=== PATIENT | female | born 1935 | race Native Hawaiian/Other Pacific Islander ===

== ENCOUNTER 2017-02-05 07:27 | Inpatient (IN) | payer OTHER ==
[~2017-02-05] VITALS: Ht 162.6 cm; Wt 65.8 kg
[2017-02-05] MEDS ORDERED: AMLO2.5T PO (07:35)
[2017-02-05] MEDS ORDERED: LOSA25TA13 PO (07:35)
--- NOTE | 2017-02-05 07:50 | NUR ---
Dr Ambrose at the bedside for eval and exam. Pt's daughter translate.
[2017-02-05 08:26] LABS: CARBON DIOXIDE 30 mmol/L (21-32); CHLORIDE 105 mmol/L (98-107); CREATININE 0.9 mg/dL (0.6-1.3); GLUCOSE 100 mg/dL (74-106); POTASSIUM 4.1 mmol/L (3.5-5.1); UREA NITROGEN, BLOOD 16 mg/dL (7-18)
[2017-02-05 08:39] LABS: BASOPHILS % (AUTO) 0.9 % (0.0-2.0); EOSINOPHILS # (AUTO) 0.1 K/uL (0.0-0.7); EOSINOPHILS % (AUTO) 1.2 % (0.0-7.0); HEMATOCRIT 42.1 % (37-47); HEMOGLOBIN 14.1 G/DL (12.0-16.0); LYMPHOCYTES # (AUTO) 1.3 K/UL (0.8-4.8); LYMPHOCYTES % (AUTO) 25.3 % (20.5-51.5); MEAN CORPUSCULAR HEMOGLOBIN 29.1 UUG (27.0-31.0); MEAN CORPUSCULAR HGB CONC 34 g/dL (32.0-37.0); MEAN CORPUSCULAR VOLUME 86.8 FL (81.0-99.0); MONOCYTES # (AUTO) 0.5 K/UL (0.1-1.30); MONOCYTES % (AUTO) 9.6 % (0.0-11.0); NEUTROPHILS # (AUTO) 3.4 K/UL (1.8-8.9); PLATELET COUNT (AUTO) 255 K/UL (150-450); RED BLOOD CELL COUNT(AUTO) 4.85 MIL/UL (4.2-5.4); WHITE BLOOD COUNT (AUTO) 5.3 K/UL (4.0-11.2)
[2017-02-05 08:41] LABS: ALANINE AMINOTRANSFERASE 21 U/L (14-59); ALKALINE PHOSPHATASE 43 U/L (50-136); ASPARTATE AMINOTRANSFERASE 20 U/L (15-37); BILIRUBIN,TOTAL 0.6 mg/dL (0.2-1.0); TOTAL PROTEIN, SERUM 7.8 g/dL (6.4-8.2)
[2017-02-05 09:16] LABS: *BILIRUBIN,URIN NEGATIVE (NEGATIVE); *BLOOD, URINE 1+ (NEGATIVE); *CLARITY,URINE CLEAR (CLEAR); *COLOR,URINE YELLOW (YELLOW); *KETONES,URINE NEGATIVE (NEGATIVE); *PROTEIN,URINE NEGATIVE (NEGATIVE); *UROBILINOGEN,URINE 0.2 E.U./dl (NORMAL); LEUKOCYTE ESTERASE ,URINE NEGATIVE (NEGATIVE); NITRITE, URINE NEGATIVE (NEGATIVE); UGLUCOSE NEGATIVE (NEGATIVE)
[2017-02-05 09:24] LABS: BACTERIA,URINE FEW /HPF (NONE SEEN); RBC,URINE 0-3 /HPF (0-3); SQUAMOUS EPITHELIAL CELL,UR FEW /HPF (NONE SEEN); WBC,URINE 0-3 /HPF (0-3)
[2017-02-05 09:29] LABS: ABG BASE EXCESS 0.9 mmol/L; ABG HCO3 26.3 mmol/L; ABG PCO2 44.7 mmHg (35.0-45.0); ABG PH 7.387 (7.350-7.450); ABG PO2 63.7 mmHg (75.0-100.0); ABG SITE LEFT RADIAL; ABG TOTAL HEMOGLOBIN 14.2 G/dL (12.0-16.0); COHb 1.1 % (0.5-1.5); MetHb 0.3 % (0.0-1.5); O2Hb 91.1 % (94.0-97.0); VENT MODE ROOM AIR
--- NOTE | 2017-02-05 10:01 | NUR ---
Patient is resting comfortably in bed with eyes closed, NAD noted.
[2017-02-05 12:47] VITALS: BP 157/73
--- NOTE | 2017-02-05 12:51 | NUR ---
81 YEAR OLD FEMALE ADMITTED TO ROOM 216 FOR HYPOXEMIA AND PNA IN STABLE CONDITION.V/S ARE STABLE .ORIENT THE PT TO ROOM AND SURROUNDINGS .PT IS AXOX4 BRP.PT SEEN BY DR ROBERTH DUQUE NEW ORDERS RECEIVED AND NOTED AND CARRIED OUT.
[2017-02-05 16:10] VITALS: BP 148/64
[2017-02-05 20:22] VITALS: BP 117/54
[2017-02-06 00:16] VITALS: BP 115/55
--- NOTE | 2017-02-06 05:20 | NUR ---
PT SLEPT INTERMITTENTLY THROUGH THE NIGHT, PT DENIED HAVING ANY PAIN OR DIFFICULTY BREATHING. PT WAS SINUS MARIAH ON THE MONITOR, THE LOWEST WAS 40 BUT WAS NON SUSTAINING. MINIMAL AMOUNT OF COUGHING NOTED DURING THE NIGHT. ALL NEEDS MET, SAFETY MEASURES ARE IN PLACE, CALL LIGHT WITHIN REACH, BED ALARM IS ON.
[2017-02-06 05:43] VITALS: BP 124/82
[2017-02-06 07:34] LABS: BASOPHILS % (AUTO) 0.1 % (0.0-2.0); HEMATOCRIT 41.3 % (37-47); HEMOGLOBIN 13.6 G/DL (12.0-16.0); LYMPHOCYTES # (AUTO) 1.4 K/UL (0.8-4.8); LYMPHOCYTES % (AUTO) 10.7 % (20.5-51.5); MEAN CORPUSCULAR HEMOGLOBIN 28.9 UUG (27.0-31.0); MEAN CORPUSCULAR HGB CONC 33 g/dL (32.0-37.0); MEAN CORPUSCULAR VOLUME 87.9 FL (81.0-99.0); MONOCYTES # (AUTO) 0.2 K/UL (0.1-1.30); MONOCYTES % (AUTO) 1.2 % (0.0-11.0); NEUTROPHILS # (AUTO) 11.4 K/UL (1.8-8.9); PLATELET COUNT (AUTO) 239 K/UL (150-450); RED BLOOD CELL COUNT(AUTO) 4.69 MIL/UL (4.2-5.4)
--- NOTE | 2017-02-06 07:35 | NUR ---
PT RECEIVED IN BED AWAKE,V/S ARE STABLE ,DAUGHTER AT BED SIDE.CALL LIGHT WITH IN REACH,
[2017-02-06 09:52] LABS: ALANINE AMINOTRANSFERASE 18 U/L (14-59); ALKALINE PHOSPHATASE 36 U/L (50-136); ASPARTATE AMINOTRANSFERASE 18 U/L (15-37); BILIRUBIN,TOTAL 0.3 mg/dL (0.2-1.0); CARBON DIOXIDE 28 mmol/L (21-32); CHLORIDE 109 mmol/L (98-107); CHOLESTEROL 186 mg/dL (<200); CREATININE 0.8 mg/dL (0.6-1.3); GLUCOSE 138 mg/dL (74-106); HDL CHOLESTEROL 67 mg/dL (40-60); MAGNESIUM 1.7 mg/dL (1.8-2.4); PHOSPHOROUS 3.5 mg/dL (2.5-4.9); TOTAL PROTEIN, SERUM 7.2 g/dL (6.4-8.2); TRIGLYCERIDES 60 MG/DL (30-150); UREA NITROGEN, BLOOD 14 mg/dL (7-18)
[2017-02-06 11:41] LABS: THYROID STIMULATING HORMONE 1.199 mIU/mL (0.358-3.740)
[2017-02-06 12:22] VITALS: BP 97/43
[2017-02-06] MEDS ORDERED: SIMV20TA6 PO (13:54)
[2017-02-06] MEDS ORDERED: DEXT15DR6 EACHEYE (13:55)
[2017-02-06] MEDS ORDERED: ZOLP5TAB2 PO (13:56)
[2017-02-06 15:49] VITALS: BP 102/41
[2017-02-06] MEDS ORDERED: DIAZ5TAB PO (19:08)
--- NOTE | 2017-02-06 19:30 | NUR ---
NSG: PATIENT RESTING IN BED.A/O X3 AMB. NO IVF RUNNING.NO C/O PAIN OR DISCOMFORT.
--- NOTE | 2017-02-06 20:30 | NUR ---
NSG: RECEIVED PATIENT A/O X3 AMBULATORY. NO C/O PAIN OR DISCOMFORT THIS TIME. IV HL IN PLACE. CONTINUE PLAN OF CARE.
[2017-02-06 20:39] VITALS: BP 101/45
--- NOTE | 2017-02-06 21:00 | NUR ---
NSG: RESPIRATORY OFFERED HHN TX.PATIENT REFUSED PRN HHN TX.
--- NOTE | 2017-02-07 00:08 | NUR ---
NSG: PATIENT RESTING EYE CLOSE. NO S/S OF PAIN OR DISCOMFORT NOTED.
[2017-02-07 04:00] VITALS: BP 102/43
[2017-02-07 04:51] VITALS: BP 102/43
--- NOTE | 2017-02-07 06:18 | NUR ---
NSG: REMAIN CALM AND COOPERATIVE.NO C/O PAIN SOB OR DISCOMFORT THIS TIME. SLEPT WELL. CONTINUE PLAN OF CARE.
--- NOTE | 2017-02-07 07:35 | NUR ---
RECEIVED PATIENT IN BED SLEEPING. A/O X3 AMBULATORY. NO C/O PAIN OR DISCOMFORT THIS TIME. CONTINUE PLAN OF CARE.CALL LIGHT WITH IN REACH
[2017-02-07 07:48] LABS: CARBON DIOXIDE 32 mmol/L (21-32); CHLORIDE 108 mmol/L (98-107); CREATININE 0.8 mg/dL (0.6-1.3); GLUCOSE 89 mg/dL (74-106); MAGNESIUM 2.1 mg/dL (1.8-2.4); PHOSPHOROUS 3.2 mg/dL (2.5-4.9); POTASSIUM 4.2 mmol/L (3.5-5.1); UREA NITROGEN, BLOOD 17 mg/dL (7-18)
[2017-02-07 08:04] LABS: BASOPHILS % (AUTO) 0.2 % (0.0-2.0); EOSINOPHILS % (AUTO) 0.2 % (0.0-7.0); HEMATOCRIT 37.3 % (31.2-41.9); HEMOGLOBIN 12.7 g/dL (10.9-14.3); LYMPHOCYTES % (AUTO) 17.4 % (20.5-51.5); MEAN CORPUSCULAR HEMOGLOBIN 29.8 uug (24.7-32.8); MEAN CORPUSCULAR HGB CONC 34 g/dL (32.3-35.6); MEAN CORPUSCULAR VOLUME 87.3 fL (75.5-95.3); MONOCYTES # (AUTO) 0.8 K/uL (2.0-10.0); MONOCYTES % (AUTO) 7.1 % (0.0-11.0); NEUTROPHILS # (AUTO) 8.8 K/uL (1.8-8.9); NEUTROPHILS % (AUTO) 75.1 % (38.5-71.5); PLATELET COUNT (AUTO) 220 K/uL (179-408); RED BLOOD CELL COUNT(AUTO) 4.27 MIL/uL (3.63-4.92); WHITE BLOOD COUNT (AUTO) 11.7 K/uL (3.8-11.8)
[2017-02-07 10:59] VITALS: BP 105/45
[2017-02-07] MEDS ORDERED: LEVO500T2 PO (13:03)
[2017-02-07] MEDS ORDERED: ALBU8.5H8 INH (13:03)
[2017-02-07] MEDS ORDERED: FLUT1DIS27 INH (13:03)
--- NOTE | 2017-02-07 13:28 | NUR ---
PT SEEN BY DR ROBERTH DUQUE
--- NOTE | 2017-02-07 15:02 | NUR ---
d/c orders received noted and carried out.d/c instructions and education given to the pt.pt verbalized understanding all the instructions.d/c heplock per md orders.pt left the facility via private car with her daughter.
== END 2017-02-07 14:50 | disposition home or self-care (01) | DRG 195 ==
LOC: ER 07:27 → MED 12:12 → TELE 12:28 → MED 02-06 15:11
PROVIDERS: ADMIT Nurse Practitioner Acute Care; ATTEND Nurse Practitioner Acute Care
DX: J15.9 Unspecified bacterial pneumonia (principal); E83.42 Hypomagnesemia; I10 Essential (primary) hypertension; F41.9 Anxiety disorder, unspecified; G47.00 Insomnia, unspecified
CPT/HCPCS: 36415; 36600; 70030-TC; 71010; 83735; 84100; 84443; 85025; 85610; 87040; 93005; 93307; A4663; J0696; J1100; J1650; J2920; J3490; J3590; J7030; J7060; Q0144

== ENCOUNTER 2017-06-13 08:18 | Emergency (ER) | payer OTHER ==
[~2017-06-13] VITALS: Ht 162.6 cm; Wt 64.4 kg
[~2017-06-13 08:18] MED LIST: ALBU8.5H8 INH; AMLO2.5T PO; DEXT15DR6 EACHEYE; DIAZ5TAB PO; FLUT1DIS27 INH; LEVO500T2 PO; LOSA25TA13 PO; SIMV20TA6 PO
--- NOTE | 2017-06-13 09:26 | NUR ---
PATIENT WAS SEEN BY MD CAMEJO C/O KNEE PAIN. XRAYS DONE. ULTRASOUND IN PROCESS.
--- NOTE | 2017-06-13 10:05 | NUR ---
KNEE IMMOBILIZER APPLIED AND INSTRUCTION ON USE GIVEN TO DAUGHTER. DC, RX AND FOLLOW UP INSTRUCTIONS GIVEN AND EXPLAINED TO DAUGHTER WHO STATES SHE UNDERSTANDS ALL INSTRUCTIONS.
== END 2017-06-13 10:07 | disposition home or self-care (01) ==
LOC: ER 08:18
DX: S83.92XA Sprain of unspecified site of left knee, initial encounter (principal); I10 Essential (primary) hypertension; Z90.49 Acquired absence of other specified parts of digestive tract; X58.XXXA Exposure to other specified factors, initial encounter; Y93.89 Activity, other specified; Y92.89 Other specified places as the place of occurrence of the external cause; Y99.8 Other external cause status
CPT/HCPCS: 29505; 73564; 93971; 99284; A4663

== ENCOUNTER 2017-11-07 19:19 | Inpatient (IN) | payer OTHER ==
[~2017-11-07] VITALS: Ht 165.1 cm; Wt 83.9 kg
--- NOTE | 2017-11-07 11:50 | NUR ---
PT ARRIVED ON ON TELE FLOOR. PT REPORT RECEIVED FROM CECILE CROCKETT IN ER. PT PLACED ON ROENTGENOLOGIST. STABLE, C/O PAIN AT THIS TIME. PAIN WILL BE MANAGED WITH PRESCRIBED ANALGESICS. PT'S FAMILY AT BEDSIDE. Addendum: 11/08/17 at 0230 by SARA HAYES RN TIME ERROR
--- NOTE | 2017-11-07 19:55 | NUR ---
Dr. Jo at bedside for MSE.
[2017-11-07] MEDS ORDERED: ONDANSETRON 4 MG/2 ML VIAL IV ONE (20:30)
[2017-11-07] MEDS ORDERED: HYDROMORPHONE 1 MG/1 ML DISP.SYRIN IV ONE (20:30)
[2017-11-07 20:31] LABS: BASOPHILS % (AUTO) 0.2 % (0.0-2.0); EOSINOPHILS # (AUTO) 0.5 K/uL (0.0-0.7); EOSINOPHILS % (AUTO) 4.6 % (0.0-7.0); HEMATOCRIT 39.7 % (31.2-41.9); HEMOGLOBIN 13.3 g/dL (10.9-14.3); LYMPHOCYTES # (AUTO) 0.9 K/uL (20.0-40.0); MEAN CORPUSCULAR HGB CONC 34 g/dL (32.3-35.6); MEAN CORPUSCULAR VOLUME 89.5 fL (75.5-95.3); MONOCYTES # (AUTO) 0.8 K/uL (2.0-10.0); MONOCYTES % (AUTO) 7.4 % (0.0-11.0); NEUTROPHILS # (AUTO) 8.9 K/uL (1.8-8.9); NEUTROPHILS % (AUTO) 79.8 % (38.5-71.5); PLATELET COUNT (AUTO) 206 K/uL (179-408); RED BLOOD CELL COUNT(AUTO) 4.43 MIL/uL (3.63-4.92); WHITE BLOOD COUNT (AUTO) 11.1 K/uL (3.8-11.8)
[2017-11-07 20:39] LABS: CARBON DIOXIDE 29 mmol/L (21-32); CHLORIDE 105 mmol/L (98-107); CREATININE 0.9 mg/dL (0.6-1.3); GLUCOSE 113 mg/dL (74-106); POTASSIUM 4.5 mmol/L (3.5-5.1); UREA NITROGEN, BLOOD 22 mg/dL (7-18)
[2017-11-07 20:44] LABS: ALANINE AMINOTRANSFERASE 29 U/L (14-59); ALKALINE PHOSPHATASE 43 U/L (50-136); ASPARTATE AMINOTRANSFERASE 18 U/L (15-37); BILIRUBIN,DIRECT 0.1 mg/dL (0.0-0.2); BILIRUBIN,TOTAL 0.4 mg/dL (0.2-1.0); TOTAL PROTEIN, SERUM 7.1 g/dL (6.4-8.2)
[2017-11-07] MEDS ORDERED: ONDANSETRON 4 MG/2 ML VIAL ONE (20:44)
[2017-11-07] MEDS ORDERED: HYDROMORPHONE 2 MG/1 ML DISP.SYRIN ONE (20:45)
--- NOTE | 2017-11-07 21:45 | NUR ---
Surgeon on phone call with Dr. Jo.
--- NOTE | 2017-11-07 22:13 | NUR ---
Dr. Jo on panel call with Alexei Skelton NP.
--- NOTE | 2017-11-07 22:58 | NUR ---
Passed report to Hector HUBER Tele.
[2017-11-07] MEDS ORDERED: MORPHINE SULFATE 2 MG/1 ML DISP.SYRIN IV PRN (23:00)
[2017-11-07] MEDS ORDERED: Z GUARD REMEDY PASTE 57 GM TUBE TOP PRN (23:00)
[2017-11-07] MEDS ORDERED: ONDANSETRON 4 MG/2 ML VIAL IV PRN (23:00)
[2017-11-07] MEDS ORDERED: HYDROCODONE/APAP 5-325MG TABLET PO PRN (23:00)
[2017-11-07] MEDS ORDERED: ACETAMINOPHEN 325 MG TABLET PO PRN (23:00)
--- NOTE | 2017-11-07 23:50 | NUR ---
PT ARRIVED ON ON TELE FLOOR. PT REPORT RECEIVED FROM CECILE CROCKETT IN ER. PT PLACED ON DESIGN DRAFTSMAN. STABLE, C/O PAIN AT THIS TIME. PAIN WILL BE MANAGED WITH PRESCRIBED ANALGESICS. PT'S FAMILY AT BEDSIDE.
[2017-11-08 00:29] VITALS: BP 151/58
[2017-11-08] MEDS: MORPHINE SULFATE 4 MG/1 ML DISP.SYRIN IV PRN ×4 (00:46→19:59)
[2017-11-08] MEDS: IV NS 1000 ML 1,000 ML IV PRN ×2 (00:47→12:47)
[2017-11-08 02:19] LABS: *BILIRUBIN,URIN NEGATIVE (NEGATIVE); *BLOOD, URINE Trace-lysed (NEGATIVE); *CLARITY,URINE CLEAR (CLEAR); *KETONES,URINE NEGATIVE (NEGATIVE); *PROTEIN,URINE NEGATIVE (NEGATIVE); *UROBILINOGEN,URINE 0.2 E.U./dl (NORMAL); LEUKOCYTE ESTERASE ,URINE NEGATIVE (NEGATIVE); NITRITE, URINE NEGATIVE (NEGATIVE); UGLUCOSE NEGATIVE (NEGATIVE)
[2017-11-08 02:20] LABS: *COLOR,URINE STRAW (YELLOW)
[2017-11-08 02:36] LABS: BACTERIA,URINE NONE SEEN /HPF (NONE SEEN); SQUAMOUS EPITHELIAL CELL,UR FEW /HPF (NONE SEEN)
[2017-11-08 04:00] VITALS: BP 100/52
--- NOTE | 2017-11-08 05:52 | NUR ---
Patient slept intermittently t/o shift. C/o pain on the left leg, meds given, stated relief. A/O x 3 but Liberian speaking only. Family at bedside to assist in translating. TELE sinus aston. IVF in fusing on the left AC, patent and intact. Skin intact. Sadler draining yellow and clear urine. Vital signs stable. All meds given as ordered. Safety and comfort measures maintained t/o shift. All needs met.
[2017-11-08 06:59] LABS: BASOPHILS % (AUTO) 0.2 % (0.0-2.0); EOSINOPHILS # (AUTO) 0.4 K/uL (0.0-0.7); EOSINOPHILS % (AUTO) 3.9 % (0.0-7.0); HEMATOCRIT 37.7 % (31.2-41.9); LYMPHOCYTES # (AUTO) 0.9 K/uL (20.0-40.0); LYMPHOCYTES % (AUTO) 9.6 % (20.5-51.5); MEAN CORPUSCULAR HEMOGLOBIN 30.7 uug (24.7-32.8); MEAN CORPUSCULAR HGB CONC 34 g/dL (32.3-35.6); MEAN CORPUSCULAR VOLUME 89.1 fL (75.5-95.3); MONOCYTES # (AUTO) 0.8 K/uL (2.0-10.0); MONOCYTES % (AUTO) 8.7 % (0.0-11.0); NEUTROPHILS # (AUTO) 7.2 K/uL (1.8-8.9); NEUTROPHILS % (AUTO) 77.6 % (38.5-71.5); PLATELET COUNT (AUTO) 192 K/uL (179-408); RED BLOOD CELL COUNT(AUTO) 4.23 MIL/uL (3.63-4.92); WHITE BLOOD COUNT (AUTO) 9.2 K/uL (3.8-11.8)
[2017-11-08 07:05] LABS: CARBON DIOXIDE 26 mmol/L (21-32); CHLORIDE 107 mmol/L (98-107); CHOLESTEROL 200 mg/dL (<200); CREATININE 0.9 mg/dL (0.6-1.3); GLUCOSE 98 mg/dL (74-106); HDL CHOLESTEROL 54 mg/dL (40-60); MAGNESIUM 1.9 mg/dL (1.8-2.4); PHOSPHOROUS 3.7 mg/dL (2.5-4.9); POTASSIUM 4.8 mmol/L (3.5-5.1); TRIGLYCERIDES 50 MG/DL (30-150); UREA NITROGEN, BLOOD 18 mg/dL (7-18)
[2017-11-08 07:07] LABS: THYROID STIMULATING HORMONE 2.429 mIU/mL (0.358-3.740)
--- NOTE | 2017-11-08 08:00 | NUR ---
no ss of distress awaiting surgery schedule and cardiac clearance
[2017-11-08 11:38] VITALS: BP 104/50
--- NOTE | 2017-11-08 13:24 | NUR ---
seen by hospitalist for follow-up see notes. continue with pain management
--- NOTE | 2017-11-08 14:17 | NUR ---
DR VALLES NOTIFIED OF CARDIAC CLEARANCE CLEARED BY DR CASTELLON SAID WILL FOLLOW-UP PATIENT THIS PM. UPDATE GIVEN TO PATIENT AND FAMILY
[2017-11-08 15:31] VITALS: BP 118/48
--- NOTE | 2017-11-08 17:45 | NUR ---
SEEN BY DR VALLES SPOKE WITH THE SON ABOUT SURGICAL PLAN IN AM. PATIENT WILL NEED LEFT BIPOLAR REPLACEMENT. CONSENT SIGNED BY PATIENT THROUGH HELP DESK.
--- NOTE | 2017-11-08 19:30 | NUR ---
RECEIVED SHIFT REPORT FROM CECILE LOONEY. PT STABLE AT THIS TIME, NO COMPLAINTS. FAMILY AT BEDSIDE.
[2017-11-08] MEDS: MAGNESIUM HYDROXIDE 30 ML LIQUID UDC PO PRN (19:51)
[2017-11-08 20:00] VITALS: BP 120/58
[2017-11-08] MEDS: SIMVASTATIN 20 MG TABLET PO SCH (22:10)
[2017-11-09] VITALS: BP 100/48
[2017-11-09] MEDS: IV NS 1000 ML 1,000 ML IV PRN ×2 (03:46→20:57)
[2017-11-09 04:00] VITALS: BP 115/50
--- NOTE | 2017-11-09 07:05 | NUR ---
RECEIVED REPORT FROM REHABILITATION TEAM LEAD NURSE, PATIENT IN BED, NO DISTRESS NOTED, BED IN LOW POSITION, SIDE RAILS UP X2.
[2017-11-09 08:24] VITALS: BP 109/47
[2017-11-09] MEDS: LOSARTAN POTASSIUM 25 MG TABLET PO SCH (09:49)
[2017-11-09] MEDS: AMLODIPINE 2.5 MG TABLET PO SCH (09:49)
[2017-11-09 11:40] VITALS: BP 99/52
[2017-11-09] MEDS: MORPHINE SULFATE 4 MG/1 ML DISP.SYRIN IV PRN ×3 (12:28→23:09)
[2017-11-09 15:22] VITALS: BP 104/48
--- NOTE | 2017-11-09 18:53 | NUR ---
Patient has been cooperative with care, experienced intermittent pain throughout the day with movement. Patient is currently in bed, no distress noted, bed in low position, side rails up x2. Patient is to have surgery at 2pm on Friday. Consent is signed and NPO after midnight.
--- NOTE | 2017-11-09 19:10 | NUR ---
RECEIVED SHIFT REPORT FROM CECILE BARBOSA. PT IN BED, STABLE. NO PAIN AT THIS TIME. NSR ON TELE. PT IS TO HAVE SURGERY ON FRIDAY 11/10 AT 1400. NPO AFTER MIDNIGHT TONIGHT.
[2017-11-09 20:00] VITALS: BP 113/53
[2017-11-09] MEDS: SIMVASTATIN 20 MG TABLET PO SCH (20:52)
[2017-11-09] MEDS: MAGNESIUM HYDROXIDE 30 ML LIQUID UDC PO PRN (21:08)
[2017-11-10 04:00] VITALS: BP 129/59
[2017-11-10] MEDS: MORPHINE SULFATE 4 MG/1 ML DISP.SYRIN IV PRN ×4 (05:12→21:07)
--- NOTE | 2017-11-10 05:38 | NUR ---
Patient slept intermittently t/o shift. C/o pain on the left leg, meds given, stated relief. A/O x 3 but Mandarin speaking only. O2 2L NC. Family at bedside to assist in translating. IVF in fusing on the left AC, patent and intact. Skin intact. Sadler draining yellow and clear urine. Good urine output. Skin intact. Turn to the right and back Q2H. Mepilex in place. Vital signs stable. All meds given as ordered. DVT pumps in place. Safety and comfort measures maintained t/o shift. All needs met.
--- NOTE | 2017-11-10 07:10 | NUR ---
RECEIVED REPORT FROM COMPLIANCE INTERN NURSE, PATIENT IN BED AWAKE, COMPLAINS OF CONSTIPATION FOR 4 DAYS. NO EVIDENCE OF PAIN AT THIS TIME, BED IN LOW POSITION, SIDE RAILS UP X2.
[2017-11-10] MEDS: LOSARTAN POTASSIUM 25 MG TABLET PO SCH (08:48)
[2017-11-10] MEDS: AMLODIPINE 2.5 MG TABLET PO SCH (08:49)
[2017-11-10] MEDS ORDERED: BISACODYL 10 MG SUPP.RECT RC PRN (10:45)
[2017-11-10] MEDS ORDERED: LACTULOSE 20 G/30 ML LIQUID UDC PO PRN (10:45)
[2017-11-10] MEDS ORDERED: VANCOMYCIN 1000 MG VIAL ONE (11:24)
[2017-11-10 11:43] VITALS: BP 105/53
[2017-11-10] MEDS: IV NS 1000 ML 1,000 ML IV PRN (12:57)
--- NOTE | 2017-11-10 15:00 | NUR ---
Patient reported being severely constipated and is not NPO any longer. Patient will be given lactulose and dulcolax suppository.
[2017-11-10 16:00] VITALS: BP 113/57
--- NOTE | 2017-11-10 18:25 | NUR ---
Patient has been cooperative with care, intermittent pain with movement in between morphine administrations. Patient had a Large BM today after suppository and lactulose administration. Patient is currently in bed, no distress noted, bed in low position, side rails up x2. Son at bedside.
[2017-11-10 20:00] VITALS: BP 129/61
[2017-11-10] MEDS: SIMVASTATIN 20 MG TABLET PO SCH (20:44)
[2017-11-10] MEDS: SENNOSIDES 1 TABLET PO SCH (20:44)
[2017-11-10] MEDS: DIAZEPAM 5 MG TABLET PO PRN (22:40)
[2017-11-11 03:38] VITALS: BP 109/49
[2017-11-11] MEDS: IV NS 1000 ML 1,000 ML IV PRN (05:02)
--- NOTE | 2017-11-11 05:42 | NUR ---
No changes t/o the rest of the shift. Endorsed patient at 0500 from Adriana. Denies pain at this time. IVF infusing on the left AC. Vital signs stable. Sadler draining clear yellow urine. Safety and comfort measures maintained t/o shift. Maintained NPO status. All meds given as ordered. All needs met.
[2017-11-11 06:43] LABS: CARBON DIOXIDE 27 mmol/L (21-32); CHLORIDE 108 mmol/L (98-107); CREATININE 0.7 mg/dL (0.6-1.3); GLUCOSE 108 mg/dL (74-106); MAGNESIUM 2.1 mg/dL (1.8-2.4); PHOSPHOROUS 3.3 mg/dL (2.5-4.9); POTASSIUM 4.2 mmol/L (3.5-5.1); UREA NITROGEN, BLOOD 12 mg/dL (7-18)
[2017-11-11 06:53] LABS: BASOPHILS % (AUTO) 0.3 % (0.0-2.0); EOSINOPHILS # (AUTO) 1.1 K/uL (0.0-0.7); HEMOGLOBIN 12.5 g/dL (10.9-14.3); LYMPHOCYTES # (AUTO) 0.9 K/uL (20.0-40.0); LYMPHOCYTES % (AUTO) 11.7 % (20.5-51.5); MEAN CORPUSCULAR HEMOGLOBIN 30.4 uug (24.7-32.8); MEAN CORPUSCULAR HGB CONC 34 g/dL (32.3-35.6); MEAN CORPUSCULAR VOLUME 89.7 fL (75.5-95.3); MONOCYTES # (AUTO) 1.3 K/uL (2.0-10.0); MONOCYTES % (AUTO) 16.6 % (0.0-11.0); NEUTROPHILS # (AUTO) 4.4 K/uL (1.8-8.9); NEUTROPHILS % (AUTO) 57.2 % (38.5-71.5); PLATELET COUNT (AUTO) 171 K/uL (179-408); RED BLOOD CELL COUNT(AUTO) 4.12 MIL/uL (3.63-4.92); WHITE BLOOD COUNT (AUTO) 7.6 K/uL (3.8-11.8)
[2017-11-11 07:04] LABS: EOSINOPHILS % (AUTO) 14.2 % (0.0-7.0)
[2017-11-11] MEDS ORDERED: ONDANSETRON 4 MG/2 ML VIAL IV ONE (07:17)
[2017-11-11] MEDS ORDERED: GLYCOPYRROLATE 0.2 MG/ML VIAL MC ONE (07:17)
[2017-11-11] MEDS ORDERED: CEFAZOLIN 1 G VIAL MC ONE (07:17)
[2017-11-11] MEDS ORDERED: LIDOCAINE HCL 2% 20 ML VIAL MC ONE (07:17)
[2017-11-11] MEDS ORDERED: DESFLURANE ANESTHESIA GAS 240 ML BOTTLE IH ONE (07:17)
[2017-11-11] MEDS ORDERED: DEXAMETHASONE SOD PHOSPHATE 4 MG INJ IV ONE (07:17)
[2017-11-11] MEDS ORDERED: IV NORMAL SALINE 1000 ML BAG IV ONE (07:17)
[2017-11-11] MEDS ORDERED: NEOSTIGMINE METHYLSULFATE 10 MG/10 ML VIAL IV ONE (07:17)
[2017-11-11] MEDS ORDERED: PROPOFOL 200 MG/20 ML BOTTLE IV ONE (07:17)
--- NOTE | 2017-11-11 07:33 | NUR ---
KEPT NPO FOR SURGERY AT 0900
[2017-11-11] MEDS ORDERED: POLYMYXIN B SULFATE 500,000 UNITS, BACITRACIN 50,000 UNITS, NORMAL SALINE 20 ML MC ONE ×3 (07:45)
[2017-11-11] MEDS ORDERED: VANCOMYCIN 1000 MG VIAL ONE (08:03)
[2017-11-11 08:28] VITALS: BP 123/58
--- NOTE | 2017-11-11 08:40 | NUR ---
TO OR FOR LEFT HIP BIPOLAR REPLACEMENT VIA BED ACCOMPANIED BY OR STAFF AWAKE ALERT AND ORIENTED X3 WITH SON AROUND
[2017-11-11] MEDS ORDERED: ROCURONIUM BROMIDE 50 MG/5 ML VIAL ONE (08:46)
[2017-11-11] MEDS ORDERED: FENTANYL CITRATE 100 MCG/2 ML AMPUL ONE (08:46)
[2017-11-11 09:13] LABS: EOSINOPHILS % (MANUAL) 15 % (0-8); LYMPHOCYTES % (MANUAL) 15 % (20-40); MONOCYTES % (MANUAL) 18 % (2-10); NEUTROPHILS % (MANUAL) 52 % (42-75)
[2017-11-11] MEDS ORDERED: HYDROMORPHONE 2 MG/1 ML DISP.SYRIN ONE (10:48)
[2017-11-11 11:33] VITALS: BP 113/45
[2017-11-11 11:49] VITALS: BP 111/57
--- NOTE | 2017-11-11 11:53 | NUR ---
BACK FROM RECOVERY ROOM AWAKE ALERT AND ORIENTED X3 NO SS OF ACUTE PAIN, NO SOB
--- NOTE | 2017-11-11 11:57 | NUR ---
TRIPLE ANTIBIOTIC GIVEN IN OR
[2017-11-11] MEDS: AMLODIPINE 2.5 MG TABLET PO SCH (12:27)
[2017-11-11] MEDS: POTASSIUM CHLORIDE 20 MEQ in IV D5 1/2 NS 1000 ML 1,000 ML IV PRN (12:27)
[2017-11-11] MEDS: LOSARTAN POTASSIUM 25 MG TABLET PO SCH (12:27)
[2017-11-11 15:45] VITALS: BP 103/55
[2017-11-11] MEDS ORDERED: DEXTROSE 50% 50 ML DISP.SYRIN IV PRN (16:00)
[2017-11-11] MEDS: PANTOPRAZOLE SODIUM 40 MG TABLET.DR PO SCH (16:19)
[2017-11-11] MEDS: HYDROCODONE/APAP 10-325 MG TABLET PO PRN ×2 (16:45→22:25)
[2017-11-11] MEDS: BLOOD SUGAR DIAGNOSTIC 1 EACH STRIP VI SCH ×2 (16:46→20:35)
[2017-11-11] MEDS: INSULIN REGULAR, HUMAN 300 UNIT/3 ML VIAL SQ PRN ×2 (16:48→20:33)
[2017-11-11] MEDS: CEFAZOLIN 1 G in PREMIXED 1 EACH IV SCH (16:49)
--- NOTE | 2017-11-11 17:50 | NUR ---
CONTINUE WITH POST OP PAIN MANAGEMENT. MEDICATED WITH NORCO 10/325 WITH GOOD RELIEF FROM PAIN. WILL START PHYSICAL THERAPY IN AM ORDERED
--- NOTE | 2017-11-11 19:10 | NUR ---
Received pt awake, alert, orientedx4. Pt shows no signs of distress. Pt iv intact and patent. Sadler Catheter intact. Son at bedside. Call light within reach, bd alarm on and in low position, side railsupx2. Abductor pillow in place. Will continue to monitor.
[2017-11-11 20:00] VITALS: BP 108/54
[2017-11-11] MEDS: SIMVASTATIN 20 MG TABLET PO SCH (20:32)
[2017-11-11] MEDS: SENNOSIDES 1 TABLET PO SCH (20:32)
[2017-11-11] MEDS: ENOXAPARIN SODIUM 40 MG/0.4 ML DISP.SYRIN SQ SCH (20:44)
[2017-11-11] MEDS ORDERED: ENOXAPARIN SODIUM 30 MG/0.3 ML DISP.SYRIN SUBCUT SCH (21:00)
--- NOTE | 2017-11-11 21:30 | NUR ---
Pt platelet count is 171L so I didn't give Lovenox for the pt. Pt blood sugar was 158 and I gave 2 units of insulin. Pt shows no signs of distress. Safety provided. Will continue o monitor.
--- NOTE | 2017-11-11 22:25 | NUR ---
Pt complain of pain of 10/10. Given Wh[place]. safety provided. will continue to monitor.
[2017-11-12] MEDS: DIAZEPAM 5 MG TABLET PO PRN (00:11)
[2017-11-12] MEDS: CEFAZOLIN 1 G in PREMIXED 1 EACH IV SCH (00:41)
[2017-11-12] MEDS: POTASSIUM CHLORIDE 20 MEQ in IV D5 1/2 NS 1000 ML 1,000 ML IV PRN ×2 (03:35→21:25)
[2017-11-12] MEDS: MORPHINE SULFATE 4 MG/1 ML DISP.SYRIN IV PRN ×3 (03:44→13:32)
[2017-11-12 04:00] VITALS: BP 101/54
[2017-11-12] MEDS: PANTOPRAZOLE SODIUM 40 MG TABLET.DR PO SCH (06:16)
[2017-11-12 06:30] LABS: BASOPHILS % (AUTO) 0.3 % (0.0-2.0); EOSINOPHILS # (AUTO) 0.3 K/uL (0.0-0.7); HEMATOCRIT 35.2 % (31.2-41.9); HEMOGLOBIN 12.1 g/dL (10.9-14.3); LYMPHOCYTES % (AUTO) 12.8 % (20.5-51.5); MEAN CORPUSCULAR HEMOGLOBIN 30.5 uug (24.7-32.8); MEAN CORPUSCULAR HGB CONC 34 g/dL (32.3-35.6); MEAN CORPUSCULAR VOLUME 88.6 fL (75.5-95.3); MONOCYTES # (AUTO) 1.4 K/uL (2.0-10.0); MONOCYTES % (AUTO) 17.5 % (0.0-11.0); NEUTROPHILS # (AUTO) 5.2 K/uL (1.8-8.9); NEUTROPHILS % (AUTO) 65.4 % (38.5-71.5); PLATELET COUNT (AUTO) 183 K/uL (179-408); RED BLOOD CELL COUNT(AUTO) 3.97 MIL/uL (3.63-4.92)
[2017-11-12] MEDS: BLOOD SUGAR DIAGNOSTIC 1 EACH STRIP VI SCH ×4 (06:36→20:48)
--- NOTE | 2017-11-12 06:40 | NUR ---
PT SLEPT THROUGHOUT THE SHIFT. PT SHOWS NO SIGNS OF DISTRESS.PRESCRIBED MEDICATION GIVEN AND PT TOLERATED IT WELL. CALL LIGHT WITHIN REACH, BED ALARM ON AND IN LOW POSITION.KO CATHETER INTACT. SAFETY AND COMFORT PROVIDED. ALL NEEDS ARE MET. WILL ENDORSE TO DAYSHIFT NURSE.
[2017-11-12 06:49] LABS: ALANINE AMINOTRANSFERASE 16 U/L (14-59); ALKALINE PHOSPHATASE 41 U/L (50-136); ASPARTATE AMINOTRANSFERASE 14 U/L (15-37); BILIRUBIN,TOTAL 0.5 mg/dL (0.2-1.0); CARBON DIOXIDE 27 mmol/L (21-32); CHLORIDE 105 mmol/L (98-107); CREATININE 0.8 mg/dL (0.6-1.3); GLUCOSE 122 mg/dL (74-106); PHOSPHOROUS 2.7 mg/dL (2.5-4.9); POTASSIUM 4.1 mmol/L (3.5-5.1); UREA NITROGEN, BLOOD 12 mg/dL (7-18)
[2017-11-12 06:55] LABS: MONOCYTES % (MANUAL) 16 % (2-10)
[2017-11-12 06:57] LABS: BAND % (MANUAL) 0 % (0-10); NEUTROPHILS % (MANUAL) 62 % (42-75)
[2017-11-12 06:58] LABS: EOSINOPHILS % (MANUAL) 5 % (0-8); LYMPHOCYTES % (MANUAL) 17 % (20-40)
--- NOTE | 2017-11-12 08:00 | NUR ---
awake alert, speaks mandarin, denies of pain, 02at3l/nc, denies of dyspnea, left hip dsg dry and intact, abduction pillow in place, good circulation noted on both lower extremities, explained plan of care to family-verbalized understanding, call light within reach
[2017-11-12] MEDS: LOSARTAN POTASSIUM 25 MG TABLET PO SCH (08:20)
[2017-11-12] MEDS: AMLODIPINE 2.5 MG TABLET PO SCH (08:20)
--- NOTE | 2017-11-12 09:10 | NUR ---
report given and endorsed care to Lore HUBER
--- NOTE | 2017-11-12 11:30 | NUR ---
PT. EATING PRIOR TO TEST
[2017-11-12 12:00] VITALS: BP 88/44
[2017-11-12 15:32] VITALS: BP 85/48
[2017-11-12] MEDS: INSULIN REGULAR, HUMAN 300 UNIT/3 ML VIAL SQ PRN (17:48)
--- NOTE | 2017-11-12 19:20 | NUR ---
RECEIVED PT AWAKE, ALERT, ORIENTEDX4. PT SHOWS NO SIGNS OF DISTRESS.FAMILY AT BEDSIDE. PT IV INTACT AND PATENT. CALL LIGHT WITHIN REACH, BED ALARM ON AND IN LOW POSITION , SIDE RAILS UPX2. PT ON ABDUCTOR PILLOW. PT ON KO CATHETER. WILL CONTINUE TO MONITOR.
[2017-11-12] MEDS: SENNOSIDES 1 TABLET PO SCH (20:36)
[2017-11-12] MEDS: HYDROCODONE/APAP 10-325 MG TABLET PO PRN (20:37)
[2017-11-12] MEDS: SIMVASTATIN 20 MG TABLET PO SCH (20:37)
[2017-11-12] MEDS: ENOXAPARIN SODIUM 40 MG/0.4 ML DISP.SYRIN SQ SCH (20:38)
[2017-11-12 21:49] VITALS: BP 102/43
[2017-11-13] MEDS: MAGNESIUM HYDROXIDE 30 ML LIQUID UDC PO PRN (00:54)
[2017-11-13] MEDS: MORPHINE SULFATE 4 MG/1 ML DISP.SYRIN IV PRN (00:59)
[2017-11-13 06:07] VITALS: BP 85/34
[2017-11-13 06:12] LABS: BASOPHILS % (AUTO) 0.4 % (0.0-2.0); EOSINOPHILS # (AUTO) 1.1 K/uL (0.0-0.7); EOSINOPHILS % (AUTO) 13.2 % (0.0-7.0); HEMATOCRIT 33.6 % (31.2-41.9); HEMOGLOBIN 11.5 g/dL (10.9-14.3); LYMPHOCYTES # (AUTO) 1.5 K/uL (20.0-40.0); MEAN CORPUSCULAR HEMOGLOBIN 30.4 uug (24.7-32.8); MEAN CORPUSCULAR HGB CONC 34 g/dL (32.3-35.6); MONOCYTES # (AUTO) 1.4 K/uL (2.0-10.0); MONOCYTES % (AUTO) 17.5 % (0.0-11.0); NEUTROPHILS % (AUTO) 49.9 % (38.5-71.5); PLATELET COUNT (AUTO) 175 K/uL (179-408); RED BLOOD CELL COUNT(AUTO) 3.77 MIL/uL (3.63-4.92); WHITE BLOOD COUNT (AUTO) 8.1 K/uL (3.8-11.8)
[2017-11-13] MEDS: PANTOPRAZOLE SODIUM 40 MG TABLET.DR PO SCH (06:20)
[2017-11-13] MEDS: BLOOD SUGAR DIAGNOSTIC 1 EACH STRIP VI SCH ×3 (06:33→16:57)
[2017-11-13 06:41] LABS: ALANINE AMINOTRANSFERASE 16 U/L (14-59); ALKALINE PHOSPHATASE 46 U/L (50-136); ASPARTATE AMINOTRANSFERASE 16 U/L (15-37); BILIRUBIN,TOTAL 0.4 mg/dL (0.2-1.0); CARBON DIOXIDE 29 mmol/L (21-32); CHLORIDE 105 mmol/L (98-107); CREATININE 0.8 mg/dL (0.6-1.3); GLUCOSE 110 mg/dL (74-106); MAGNESIUM 1.9 mg/dL (1.8-2.4); PHOSPHOROUS 3.3 mg/dL (2.5-4.9); POTASSIUM 4.5 mmol/L (3.5-5.1); TOTAL PROTEIN, SERUM 5.8 g/dL (6.4-8.2); UREA NITROGEN, BLOOD 15 mg/dL (7-18)
--- NOTE | 2017-11-13 06:47 | NUR ---
PT SLEPT THROUGHOUT THE SHIFT . PT SHOWS NO SIGNS OF DISTRESS. PT IV INTACT. REMOVED KO BECAUSE ITS 48 HRS POST OP. PRESCRIBED MEDICATION GIVEN AND PT TOLERATED IT WELL. SAFETY AND COMFORT PROVIDED. WILL ENDORSE TO DAYSHIFT NURSE.
[2017-11-13] MEDS: LOSARTAN POTASSIUM 25 MG TABLET PO SCH (08:32)
[2017-11-13] MEDS: AMLODIPINE 2.5 MG TABLET PO SCH (08:32)
[2017-11-13 09:48] LABS: NEUTROPHILS % (MANUAL) 55 % (42-75)
[2017-11-13 09:49] LABS: EOSINOPHILS % (MANUAL) 10 % (0-8); LYMPHOCYTES % (MANUAL) 20 % (20-40); MONOCYTES % (MANUAL) 15 % (2-10)
[2017-11-13] MEDS: POTASSIUM CHLORIDE 20 MEQ in IV D5 1/2 NS 1000 ML 1,000 ML IV PRN (09:52)
[2017-11-13 11:14] VITALS: BP 101/49
[2017-11-13 11:50] VITALS: BP 113/53
[2017-11-13] MEDS: HYDROCODONE/APAP 10-325 MG TABLET PO PRN ×2 (12:01→19:41)
[2017-11-13] MEDS: INSULIN REGULAR, HUMAN 300 UNIT/3 ML VIAL SQ PRN (12:04)
[2017-11-13] MEDS ORDERED: LACT10SO7 PO (15:47)
[2017-11-13] MEDS ORDERED: Blood Sugar Diagnostic VI (15:47)
[2017-11-13] MEDS ORDERED: ACET325T53 PO (15:47)
[2017-11-13] MEDS ORDERED: INSU100V28 SQ (15:47)
[2017-11-13] MEDS ORDERED: HYDR-548 PO (15:47)
[2017-11-13] MEDS ORDERED: ENOX40DI SQ (15:47)
[2017-11-13] MEDS ORDERED: BISA10SU12 RC (15:47)
[2017-11-13] MEDS ORDERED: SENN-167 PO (15:47)
[2017-11-13] MEDS ORDERED: DOCU-141 PO (15:47)
[2017-11-13] MEDS ORDERED: MAGN400O6 PO (15:47)
[2017-11-13] MEDS ORDERED: PANT40TA2 PO (15:47)
[2017-11-13 16:09] VITALS: BP 95/41
[2017-11-13 17:03] VITALS: BP 115/53
--- NOTE | 2017-11-13 19:50 | NUR ---
PATIENT [facility] BY EMT [facility]. REPORT GIVEN TO MED TRANSPORTERS. FAMILY AT BEDSIDE WHO WILL FOLLOW PATIENT. VITAL SIGNS STABLE. PAIN MEDICATION GIVEN PRIOR TO DISCHARGE. ALL BELONGINGS TAKEN WITH PATIENT.
[2017-11-13 19:52] VITALS: BP 102/48
== END 2017-11-13 19:45 | DRG 301 ==
LOC: ER 19:21 → TELE 23:18 → MED 11-09 20:00
PROVIDERS: ADMIT Nurse Practitioner Acute Care; ATTEND Nurse Practitioner Acute Care
PROC: 0SRS01A Replacement of Left Hip Joint, Femoral Surface with Metal Synthetic Substitute, Uncemented, Open Approach (ICD-10-PCS; principal; 2017-11-10)
DX: S72.012A Unspecified intracapsular fracture of left femur, initial encounter for closed fracture (principal); I21.A1 Myocardial infarction type 2; E43 Unspecified severe protein-calorie malnutrition; E11.65 Type 2 diabetes mellitus with hyperglycemia; D69.6 Thrombocytopenia, unspecified; I11.0 Hypertensive heart disease with heart failure; I50.32 Chronic diastolic (congestive) heart failure; I42.9 Cardiomyopathy, unspecified; E66.9 Obesity, unspecified; I10 Essential (primary) hypertension; E78.5 Hyperlipidemia, unspecified; W01.0XXA Fall on same level from slipping, tripping and stumbling without subsequent striking against object, initial encounter; Y92.009 Unspecified place in unspecified non-institutional (private) residence as the place of occurrence of the external cause; Z68.30 Body mass index [BMI] 30.0-30.9, adult; Z90.49 Acquired absence of other specified parts of digestive tract; Z98.49 Cataract extraction status, unspecified eye; E83.51 Hypocalcemia; I25.10 Atherosclerotic heart disease of native coronary artery without angina pectoris
CPT/HCPCS: 36415; 70030-TC; 71045; 73501; 73502; 83735; 84100; 84443; 85018; 85025; 85730; 86850; 86900; 86901; 93005; 97110; 97116; 97165; 97530; A4649; A4663; C1776; J0690; J1100; J1170; J1650; J1815; J2270; J2405; J2710; J3010; J3370; J3480; J3490; J7030

== ENCOUNTER 2019-01-28 07:49 | Inpatient (IN) | payer OTHER ==
[~2019-01-28] VITALS: Ht 162.6 cm; Wt 60.3 kg
[2019-01-28] VITALS (13 sets, daily range): BP systolic 81–129; BP diastolic 41–79
[~2019-01-28 07:49] MED LIST changes: +ACET325T53 PO; -ALBU8.5H8 INH; -AMLO2.5T PO; +BISA10SU12 RC; +Blood Sugar Diagnostic VI; -DEXT15DR6 EACHEYE; +DOCU-141 PO; +ENOX40DI SQ; -FLUT1DIS27 INH; +HYDR-4354 PO; +INSU100V28 SQ; +LACT10SO7 PO; -LEVO500T2 PO; -LOSA25TA13 PO; +MAGN400O6 PO; +PANT40TA2 PO; +SENN-168 PO
[2019-01-28] MEDS ORDERED: PANTOPRAZOLE SODIUM 40 MG VIAL IV ONE (08:30)
[2019-01-28] MEDS ORDERED: PANTOPRAZOLE SODIUM 40 MG VIAL ONE (08:33)
[2019-01-28 08:35] LABS: BASOPHILS # (AUTO) 0.1 K/uL (0.0-8.0); BASOPHILS % (AUTO) 1.7 % (0.0-2.0); EOSINOPHILS # (AUTO) 0.2 K/uL (0.0-0.7); HEMATOCRIT 37.5 % (31.2-41.9); HEMOGLOBIN 12.3 g/dL (10.9-14.3); LYMPHOCYTES # (AUTO) 1.2 K/uL (20.0-40.0); LYMPHOCYTES % (AUTO) 26.7 % (20.5-51.5); MEAN CORPUSCULAR HEMOGLOBIN 30.1 uug (24.7-32.8); MEAN CORPUSCULAR HGB CONC 33 g/dL (32.3-35.6); MEAN CORPUSCULAR VOLUME 91.7 fL (75.5-95.3); MONOCYTES # (AUTO) 0.7 K/uL (2.0-10.0); MONOCYTES % (AUTO) 15.1 % (0.0-11.0); NEUTROPHILS # (AUTO) 2.3 K/uL (1.8-8.9); NEUTROPHILS % (AUTO) 51.5 % (38.5-71.5); PLATELET COUNT (AUTO) 235 K/uL (179-408); WHITE BLOOD COUNT (AUTO) 4.4 K/uL (3.8-11.8)
[2019-01-28 08:42] LABS: CARBON DIOXIDE 25 mmol/L (21-32); CHLORIDE 109 mmol/L (98-107); CREATININE 0.8 mg/dL (0.6-1.3); GLUCOSE 95 mg/dL (74-106); POTASSIUM 4.3 mmol/L (3.5-5.1); UREA NITROGEN, BLOOD 16 mg/dL (7-18)
[2019-01-28 08:58] LABS: ALANINE AMINOTRANSFERASE 12 U/L (14-59); ALKALINE PHOSPHATASE 46 U/L (50-136); ASPARTATE AMINOTRANSFERASE 16 U/L (15-37); BILIRUBIN,DIRECT 0.1 mg/dL (0.0-0.2); BILIRUBIN,TOTAL 0.5 mg/dL (0.2-1.0); LIPASE 156 U/L (73-393); TOTAL PROTEIN, SERUM 7.4 g/dL (6.4-8.2)
[2019-01-28 09:06] LABS: BASOPHILS % (MANUAL) 1 % (0-2); LYMPHOCYTES % (MANUAL) 22 % (20-40); MONOCYTES % (MANUAL) 15 % (2-10); NEUTROPHILS % (MANUAL) 62 % (42-75)
[2019-01-28 09:12] LABS: *BILIRUBIN,URIN NEGATIVE (NEGATIVE); *BLOOD, URINE TRACE LYSED (NEGATIVE); *CLARITY,URINE CLEAR (CLEAR); *COLOR,URINE LIGHT YELLOW (YELLOW); *KETONES,URINE NEGATIVE (NEGATIVE); *UROBILINOGEN,URINE 0.2 E.U./dl (NORMAL); LEUKOCYTE ESTERASE ,URINE TRACE (NEGATIVE); NITRITE, URINE NEGATIVE (NEGATIVE); PH,URINE 6.5 (5.0-8.0); UGLUCOSE NEGATIVE (NEGATIVE)
[2019-01-28 09:26] LABS: BACTERIA,URINE NONE SEEN /HPF (NONE SEEN); RBC,URINE 0-3 /HPF (0-3); SQUAMOUS EPITHELIAL CELL,UR NONE SEEN /HPF (NONE SEEN); WBC,URINE 0-3 /HPF (0-3)
[2019-01-28] MEDS ORDERED: ZOLPIDEM 5 MG TABLET PO PRN (11:30)
[2019-01-28] MEDS ORDERED: HYDROCODONE/APAP 5-325MG TABLET PO PRN (11:30)
[2019-01-28] MEDS ORDERED: ONDANSETRON 4 MG/2 ML VIAL IV PRN (11:30)
[2019-01-28] MEDS ORDERED: Z GUARD REMEDY PASTE 57 GM TUBE TOP PRN (11:30)
[2019-01-28] MEDS ORDERED: HYDROCODONE/APAP 10-325 MG TABLET PO PRN (11:30)
[2019-01-28] MEDS ORDERED: ACETAMINOPHEN 325 MG TABLET PO PRN (11:30)
[2019-01-28] MEDS ORDERED: MAGNESIUM HYDROXIDE 30 ML LIQUID UDC PO PRN (11:30)
[2019-01-28] MEDS ORDERED: LOSA25TA27 PO ×2 (11:44→11:52)
[2019-01-28] MEDS ORDERED: GEMF600T5 PO (11:51)
[2019-01-28] MEDS ORDERED: AMLO2.5T4 PO (11:53)
[2019-01-28] MEDS ORDERED: DORZ10DR11 EACHEYE (12:15)
[2019-01-28] MEDS ORDERED: LATA2.5D7 OP (12:15)
[2019-01-28] MEDS ORDERED: ALBUTEROL SULFATE 8 GM HFA.AER.AD IH PRN (15:15)
[2019-01-28] MEDS ORDERED: ALBUTEROL SULFATE 2.5 MG/3 ML NEBU NEB PRN (16:15)
[2019-01-28] MEDS ORDERED: IV NS 1000 ML 1,000 ML IV STA (20:22)
[2019-01-28] MEDS ORDERED: NOREPINEPHRINE BITARTRATE 8 MG in IV DEXTROSE 5% 500 ML IV PRN (22:15)
[2019-01-29] VITALS (21 sets, daily range): BP systolic 98–153; BP diastolic 35–66
[2019-01-29 05:25] LABS: CREATININE 0.9 mg/dL (0.6-1.3); MAGNESIUM 2.1 mg/dL (1.8-2.4); PHOSPHOROUS 3.5 mg/dL (2.5-4.9); POTASSIUM 4.5 mmol/L (3.5-5.1)
[2019-01-29 05:35] LABS: THYROID STIMULATING HORMONE 3.153 mIU/mL (0.358-3.740)
[2019-01-29 05:47] LABS: BASOPHILS % (AUTO) 0.8 % (0.0-2.0); EOSINOPHILS # (AUTO) 0.2 K/uL (0.0-0.7); EOSINOPHILS % (AUTO) 4.8 % (0.0-7.0); HEMATOCRIT 36.9 % (31.2-41.9); HEMOGLOBIN 12.1 g/dL (10.9-14.3); LYMPHOCYTES # (AUTO) 1.3 K/uL (20.0-40.0); LYMPHOCYTES % (AUTO) 29.9 % (20.5-51.5); MEAN CORPUSCULAR HEMOGLOBIN 30.3 uug (24.7-32.8); MEAN CORPUSCULAR HGB CONC 33 g/dL (32.3-35.6); MEAN CORPUSCULAR VOLUME 92.1 fL (75.5-95.3); MONOCYTES # (AUTO) 0.7 K/uL (2.0-10.0); MONOCYTES % (AUTO) 16.1 % (0.0-11.0); NEUTROPHILS # (AUTO) 2.1 K/uL (1.8-8.9); NEUTROPHILS % (AUTO) 48.4 % (38.5-71.5); PLATELET COUNT (AUTO) 221 K/uL (179-408); WHITE BLOOD COUNT (AUTO) 4.4 K/uL (3.8-11.8)
[2019-01-29] MEDS: PANTOPRAZOLE SODIUM 40 MG TABLET.DR PO SCH (07:01)
[2019-01-29 07:04] LABS: EOSINOPHILS % (MANUAL) 4 % (0-8); LYMPHOCYTES % (MANUAL) 31 % (20-40); MONOCYTES % (MANUAL) 16 % (2-10); NEUTROPHILS % (MANUAL) 49 % (42-75)
[2019-01-29] MEDS: DORZOLAMIDE/TIMOLOL OPHT DROP 10 ML BOTTLE EACHEYE SCH (17:57)
[2019-01-29] MEDS ORDERED: GEMFIBROZIL 600 MG TABLET PO SCH (18:00)
[2019-01-29] MEDS: LATANOPROST OPHT DROP 2.5 ML BOTTLE EACHEYE SCH (20:42)
[2019-01-29] MEDS: SIMVASTATIN 20 MG TABLET PO SCH (20:42)
[2019-01-30] VITALS (15 sets, daily range): BP systolic 111–143; BP diastolic 50–65
[2019-01-30 05:34] LABS: BASOPHILS % (AUTO) 0.6 % (0.0-2.0); EOSINOPHILS # (AUTO) 0.2 K/uL (0.0-0.7); EOSINOPHILS % (AUTO) 4.8 % (0.0-7.0); HEMATOCRIT 38.1 % (31.2-41.9); LYMPHOCYTES # (AUTO) 1.2 K/uL (20.0-40.0); LYMPHOCYTES % (AUTO) 26.8 % (20.5-51.5); MEAN CORPUSCULAR HEMOGLOBIN 31.6 uug (24.7-32.8); MEAN CORPUSCULAR HGB CONC 34 g/dL (32.3-35.6); MEAN CORPUSCULAR VOLUME 92.9 fL (75.5-95.3); MONOCYTES # (AUTO) 0.7 K/uL (2.0-10.0); MONOCYTES % (AUTO) 16.1 % (0.0-11.0); NEUTROPHILS # (AUTO) 2.3 K/uL (1.8-8.9); NEUTROPHILS % (AUTO) 51.7 % (38.5-71.5); PLATELET COUNT (AUTO) 244 K/uL (179-408); WHITE BLOOD COUNT (AUTO) 4.5 K/uL (3.8-11.8)
[2019-01-30 05:49] LABS: CREATININE 0.9 mg/dL (0.6-1.3); MAGNESIUM 1.9 mg/dL (1.8-2.4); PHOSPHOROUS 3.4 mg/dL (2.5-4.9); POTASSIUM 4.2 mmol/L (3.5-5.1)
[2019-01-30] MEDS: PANTOPRAZOLE SODIUM 40 MG TABLET.DR PO SCH (06:39)
[2019-01-30 08:08] LABS: EOSINOPHILS % (MANUAL) 6 % (0-8); LYMPHOCYTES % (MANUAL) 33 % (20-40); MONOCYTES % (MANUAL) 14 % (2-10); NEUTROPHILS % (MANUAL) 47 % (42-75)
[2019-01-30] MEDS: DORZOLAMIDE/TIMOLOL OPHT DROP 10 ML BOTTLE EACHEYE SCH ×2 (09:13→17:11)
[2019-01-30] MEDS: SIMVASTATIN 20 MG TABLET PO SCH (20:59)
[2019-01-30] MEDS: LATANOPROST OPHT DROP 2.5 ML BOTTLE EACHEYE SCH (21:00)
[2019-01-31 00:32] VITALS: BP 126/61
[2019-01-31 04:00] VITALS: BP 122/60
[2019-01-31] MEDS: PANTOPRAZOLE SODIUM 40 MG TABLET.DR PO SCH (06:26)
[2019-01-31] MEDS: DORZOLAMIDE/TIMOLOL OPHT DROP 10 ML BOTTLE EACHEYE SCH ×2 (09:15→16:04)
[2019-01-31 11:22] VITALS: BP 124/43
[2019-01-31 15:16] VITALS: BP 106/48
== END 2019-01-31 16:55 | disposition home or self-care (01) | DRG 241 ==
LOC: ER 07:49 → TELE3 10:47 → CCU 11:08 → TELE3 01-30 15:07
PROVIDERS: ADMIT Student in an Organized Health Care Education/Training Program; ATTEND Student in an Organized Health Care Education/Training Program
DX: K29.70 Gastritis, unspecified, without bleeding (principal); I27.20 Pulmonary hypertension, unspecified; J84.10 Pulmonary fibrosis, unspecified; R00.1 Bradycardia, unspecified; R07.89 Other chest pain; I11.9 Hypertensive heart disease without heart failure; J47.9 Bronchiectasis, uncomplicated; R10.13 Epigastric pain; J98.11 Atelectasis; E78.5 Hyperlipidemia, unspecified; I70.0 Atherosclerosis of aorta; N28.1 Cyst of kidney, acquired; K57.30 Diverticulosis of large intestine without perforation or abscess without bleeding; R91.8 Other nonspecific abnormal finding of lung field; Z96.642 Presence of left artificial hip joint
CPT/HCPCS: 36415; 70030-TC; 71045; 71250; 83690; 83735; 84100; 84443; 85025; 85730; 87086; 93005; 93307; A4663; C9113; G0378; J7030

== ENCOUNTER 2021-01-17 09:03 | Emergency (ER) | payer OTHER ==
[~2021-01-17] VITALS: Ht 162.6 cm; Wt 55.3 kg
[~2021-01-17 09:03] MED LIST changes: -ACET325T53 PO; -BISA10SU12 RC; -Blood Sugar Diagnostic VI; -DIAZ5TAB PO; -DOCU-141 PO; +DORZ10DR11 EACHEYE; -ENOX40DI SQ; +GEMF600T90 PO; -HYDR-4354 PO; -INSU100V28 SQ; -LACT10SO7 PO; +LATA2.5D15 OP; -MAGN400O6 PO; -PANT40TA2 PO; -SENN-168 PO; +SIMV-46 PO; -SIMV20TA6 PO
[2021-01-17] MEDS ORDERED: IV NORMAL SALINE 1000 ML BAG IV ONE (09:15)
[2021-01-17] MEDS ORDERED: PANTOPRAZOLE SODIUM 40 MG VIAL IV ONE (09:15)
[2021-01-17] MEDS ORDERED: ONDANSETRON 4 MG/2 ML VIAL IV ONE (09:15)
[2021-01-17 09:50] LABS: HEMATOCRIT 37.1 % (31.2-41.9); MEAN CORPUSCULAR HEMOGLOBIN 30.1 uug (24.7-32.8); MEAN CORPUSCULAR VOLUME 91.6 fL (75.5-95.3); PLATELET COUNT (AUTO) 297 K/uL (179-408)
[2021-01-17] MEDS ORDERED: ONDANSETRON 4 MG/2 ML VIAL ONE (09:58)
[2021-01-17] MEDS ORDERED: PANTOPRAZOLE SODIUM 40 MG VIAL ONE (09:58)
[2021-01-17 10:01] LABS: BILIRUBIN,DIRECT 0.2 mg/dL (0.0-0.2); BILIRUBIN,TOTAL 0.5 mg/dL (0.2-1.0); CREATININE 0.8 mg/dL (0.6-1.3); TOTAL PROTEIN, SERUM 7.9 g/dL (6.4-8.2)
--- NOTE | 2021-01-17 10:12 | NUR ---
MD@bedside, medical screening exam in progress
[2021-01-17] MEDS ORDERED: AZITHROMYCIN 500MG/ D5W 250ML IVPB **ER PYXIS ONLY IV ONE (10:29)
[2021-01-17] MEDS ORDERED: CEFTRIAXONE /D5W 50ML IVPB **ER PYXIS IV ONE (10:29)
[2021-01-17] MEDS ORDERED: AZITHROMYCIN IV 500 MG in IV DEXTROSE 5% 250 ML IV ONE (10:30)
[2021-01-17] MEDS ORDERED: CEFTRIAXONE 1 G in IV DEXTROSE 5% 50 ML IV ONE (10:30)
[2021-01-17 12:18] LABS: *BILIRUBIN,URIN NEGATIVE (NEGATIVE); *CLARITY,URINE CLEAR (CLEAR); *COLOR,URINE LIGHT YELLOW (YELLOW); *KETONES,URINE NEGATIVE (NEGATIVE); *UROBILINOGEN,URINE 0.2 E.U./dl (NORMAL); LEUKOCYTE ESTERASE ,URINE NEGATIVE (NEGATIVE); NITRITE, URINE NEGATIVE (NEGATIVE); UGLUCOSE NEGATIVE (NEGATIVE)
[2021-01-17 12:21] LABS: *BLOOD, URINE TRACE (NEGATIVE)
--- NOTE | 2021-01-17 12:48 | NUR ---
Patient is resting comfortably on gurney with eyes closed, waiting for ER registration staff Ernie'kavita /Magui's approval from insurance's approval if this patient can be admitted to our hospital. Patient and daughter were update. Addendum: 01/17/21 at 1250 by MARCIO Patient and daughter were updated accordingly.
--- NOTE | 2021-01-17 13:55 | NUR ---
Patient still has no insurance approval for admission per ER registration staff Ernie. Patient and family were notified.
--- NOTE | 2021-01-17 14:19 | NUR ---
Patient had one hemoptysis in ER, small blood seen on tissue, SpO2=98% room air, denies pains, calm, respiration:easy, pending [facility] callback for accepting hospital and nurse@this time.
[2021-01-17 14:31] LABS: BACTERIA,URINE NONE SEEN /HPF (NONE SEEN); RBC,URINE 0-3 /HPF (0-3); SQUAMOUS EPITHELIAL CELL,UR FEW /HPF (NONE SEEN); URINE AMORPHOUS PHOSPHATES FEW /HPF; WBC,URINE 0-3 /HPF (0-3)
--- NOTE | 2021-01-17 16:01 | NUR ---
Patient ambulated to bathroom to void 3x, still waiting for an available bed & nurse in [facility].
--- NOTE | 2021-01-17 19:15 | NUR ---
Dinner tray@bedside, still waiting for transfer information (e.g accepting nurse, available bed at [facility]).
--- NOTE | 2021-01-17 19:41 | NUR ---
RECEIVED CALL BACK FROM [facility] ACCEPTING INFO FOLLOWED: ACCEPTED TO [facility] UNDER DR[address] SOSA ROOM: 206-B REPORT # [phone] AMBULANCE ETA: 2100
--- NOTE | 2021-01-17 20:48 | NUR ---
[facility] CALLED WITH A DELAYED ETA OF 10-10:30 PM.
--- NOTE | 2021-01-17 21:20 | NUR ---
GAVE REPORT TO MARCO FROM [facility].
--- NOTE | 2021-01-17 22:46 | NUR ---
CALLED [facility] TO FOLLOW UP WITH TRANSPORTATION, PER RADHA "THEY'LL BE THERE IN 15 MINUTES".
--- NOTE | 2021-01-17 23:00 | NUR ---
Patient is resting comfortably in bed with eyes closed. VSS.
--- NOTE | 2021-01-17 23:12 | NUR ---
CALLED [facility] TO FOLLOW UP WITH TRANSPORTATION AGAIN, PER WILLIAM "THEY'LL BE THERE IN THE NEXT 15 TO 20 MINUTES".
--- NOTE | 2021-01-17 23:20 | NUR ---
Patient Tranfers to outside Facility Physician: SHEILA Location:[facility] [place] ROOM [address] [facility] UNIT G20 TRANSPORTED PT DAUGHTER ANGELITA MADE AWARE THAT PT IS DISCHARGE FROM OUT ER AND ON HER WAY TO [facility], VERBALIZDE UNDERSTANDING.
== END 2021-01-17 23:30 | disposition short-term general hospital (02) ==
LOC: ER 09:03
DX: J18.9 Pneumonia, unspecified organism (principal); R04.2 Hemoptysis; R00.1 Bradycardia, unspecified; Z20.822 Contact with and (suspected) exposure to COVID-19; R94.31 Abnormal electrocardiogram [ECG] [EKG]; I70.0 Atherosclerosis of aorta; Z90.49 Acquired absence of other specified parts of digestive tract; Z96.649 Presence of unspecified artificial hip joint; M81.0 Age-related osteoporosis without current pathological fracture; H40.9 Unspecified glaucoma; Z79.899 Other long term (current) drug therapy
CPT/HCPCS: 36415; 71045; 80048; 80076; 81001; 83690; 83880; 84484; 85025; 85610; 86850; 86900; 86901; 87426; 93005; 96365; 96367; 96375; 99285; C9113; J0456; J0696; J2405; 70030-TC; A4663; J7030

== ENCOUNTER 2022-06-25 10:52 | Inpatient (IN) | payer OTHER ==
[~2022-06-25] VITALS: Ht 162.6 cm; Wt 51.8 kg
[~2022-06-25 10:52] MED LIST changes: +LATA2.5D15 EACHEYE; -LATA2.5D15 OP
[2022-06-25] MEDS ORDERED: LOSA25TA27 PO (11:14)
[2022-06-25] MEDS ORDERED: AMLO2.5T4 PO (11:14)
--- NOTE | 2022-06-25 11:30 | NUR ---
Dr Darnell at the bedside for MSE.
[2022-06-25 12:10] LABS: HEMATOCRIT 35.5 % (31.2-41.9); MEAN CORPUSCULAR HEMOGLOBIN 29.9 uug (24.7-32.8); MEAN CORPUSCULAR VOLUME 91.7 fL (75.5-95.3); PLATELET COUNT (AUTO) 327 K/uL (179-408)
[2022-06-25 12:23] LABS: CARBON DIOXIDE 27 mmol/L (21-32); CHLORIDE 101 mmol/L (98-107); CREATININE 0.7 mg/dL (0.6-1.3); GLUCOSE 121 mg/dL (74-106); POTASSIUM 4.3 mmol/L (3.5-5.1); UREA NITROGEN, BLOOD 21 mg/dL (7-18)
[2022-06-25 12:30] LABS: *BILIRUBIN,URIN NEGATIVE (NEGATIVE); *CLARITY,URINE CLEAR (CLEAR); *COLOR,URINE YELLOW (YELLOW); *KETONES,URINE NEGATIVE (NEGATIVE); *UROBILINOGEN,URINE 0.2 E.U./dl (NORMAL); LEUKOCYTE ESTERASE ,URINE 1+ (NEGATIVE); NITRITE, URINE NEGATIVE (NEGATIVE); UGLUCOSE NEGATIVE (NEGATIVE)
[2022-06-25 12:31] LABS: *BLOOD, URINE TRACE (NEGATIVE)
[2022-06-25 12:35] LABS: BACTERIA,URINE FEW /HPF (NONE SEEN); RBC,URINE 0-3 /HPF (0-3)
[2022-06-25 12:36] LABS: SQUAMOUS EPITHELIAL CELL,UR FEW /HPF (NONE SEEN)
[2022-06-25] MEDS ORDERED: CEFTRIAXONE 1 G in IV DEXTROSE 5% 50 ML IV ONE (14:45)
[2022-06-25] MEDS ORDERED: AZITHROMYCIN IV 500 MG in IV DEXTROSE 5% 250 ML IV ONE (14:45)
[2022-06-25] MEDS ORDERED: CEFTRIAXONE /D5W 50ML IVPB **ER PYXIS IV ONE (14:52)
[2022-06-25] MEDS ORDERED: AZITHROMYCIN 500MG/ D5W 250ML IVPB **ER PYXIS ONLY IV ONE (14:52)
--- NOTE | 2022-06-25 16:52 | NUR ---
Dr lepe spoke to [facility] for tx, no tx info provided yet.
--- NOTE | 2022-06-25 17:02 | NUR ---
Patient is resting comfortably in bed with eyes closed, NAD noted.
--- NOTE | 2022-06-25 19:37 | NUR ---
Patient ambulated to the bathroom standby assist. Voided yellow urine.
--- NOTE | 2022-06-25 21:22 | NUR ---
Per patient's insurance, patient is to be admitted here as in patient.
--- NOTE | 2022-06-25 21:23 | NUR ---
Called [facility] for panel call. Dr. Hines regional coordinator, waiting for call back.
--- NOTE | 2022-06-25 21:28 | NUR ---
Dr. Bell on panel call with Dr. Scott Pending admission.
--- NOTE | 2022-06-25 21:37 | NUR ---
Patient has been admitted to third floor room 325
--- NOTE | 2022-06-25 21:48 | NUR ---
Spoke to Darlene (daughter) to notify of patient's admission.
--- NOTE | 2022-06-25 22:09 | NUR ---
Report given to Lore HUBER.
[2022-06-25 22:33] VITALS: BP 119/52
--- NOTE | 2022-06-25 22:43 | NUR ---
Patient taken to third floor room 325 via gurney with personal belongings. Patient in stable condition, no signs of distress. physician office secretary aware of patients arrival.
--- NOTE | 2022-06-25 23:00 | NUR ---
Admitted a 87 years old female with Dx of Pneumonia and Bradycardia. Patient AAOx4, but Mandarin speaking only. Patient daughter Darlene assisted during admission by translating for patient and giving this nurse needed information for admission over the phone. Patient denies any pain or SOB. Sinus aston on tele with HR 45/min. Denies any CP. No coughing noted at this time. IV site on left FA intact and patent. Routine admission care done. Plan of care initiated. Safety measure initiated and call light within reached. Continue to monitor. Informed Dr. Danielle that patient wishes to be DNR/DNI and gave order for code status.
[2022-06-25] MEDS ORDERED: ONDANSETRON 4 MG/2 ML VIAL IV PRN (23:45)
[2022-06-25] MEDS ORDERED: ACETAMINOPHEN 325 MG TABLET PO PRN (23:45)
[2022-06-25] MEDS ORDERED: ENOXAPARIN SODIUM 40 MG/0.4 ML DISP.SYRIN SQ SCH (23:45)
[2022-06-26 04:42] VITALS: BP 101/47
--- NOTE | 2022-06-26 05:14 | NUR ---
Slept well after admission. No complain of pain or SOB. Sinus aston on tele as low as 37/min. Denies any chest pain. Needs attended to and met. Safety measure maintained and call light within reached.
[2022-06-26 06:58] LABS: HEMATOCRIT 34.7 % (31.2-41.9); MEAN CORPUSCULAR HEMOGLOBIN 30.1 uug (24.7-32.8); MEAN CORPUSCULAR VOLUME 90.7 fL (75.5-95.3); PLATELET COUNT (AUTO) 297 K/uL (179-408)
--- NOTE | 2022-06-26 07:20 | NUR ---
RECEIVED PATIENT IN BED AWAKE ALERT AND ORIENTED DENIES PAIN OR DISCOMFORTS AT THIS TIME ON ROOM AIR WITH NO SHORTNESS OF BREATH TELE IS SB CALL LIGHTS AND PERSOANL BELONGINGS ARE WITHIN EASY REACH AT THIS TIME WILL CONTINUE TO OBSERVE.
[2022-06-26] MEDS ORDERED: PANTOPRAZOLE SODIUM 40 MG VIAL IV SCH (09:00)
[2022-06-26 11:54] VITALS: BP 135/64
[2022-06-26] MEDS ORDERED: DEXT15SY3 PO (12:23)
[2022-06-26] MEDS ORDERED: AMOX-430 PO (12:23)
[2022-06-26 13:41] LABS: CARBON DIOXIDE 24 mmol/L (21-32); CHLORIDE 103 mmol/L (98-107); POTASSIUM 4.3 mmol/L (3.5-5.1)
[2022-06-26 13:42] LABS: ALANINE AMINOTRANSFERASE 10 U/L (14-59); ALKALINE PHOSPHATASE 61 U/L (50-136); ASPARTATE AMINOTRANSFERASE 17 U/L (15-37); BILIRUBIN,TOTAL 0.4 mg/dL (0.2-1.0); CREATININE 0.9 mg/dL (0.6-1.3); GLUCOSE 76 mg/dL (74-106); PHOSPHOROUS 3.5 mg/dL (2.5-4.9); UREA NITROGEN, BLOOD 18 mg/dL (7-18)
[2022-06-26 13:43] LABS: CHOLESTEROL 181 mg/dL (<200); HDL CHOLESTEROL 83 mg/dL (40-60); MAGNESIUM 2.1 mg/dL (1.8-2.4); TOTAL PROTEIN, SERUM 7.8 g/dL (6.4-8.2); TRIGLYCERIDES 26 MG/DL (30-150)
--- NOTE | 2022-06-26 14:30 | NUR ---
PATIENT DISCHARGED PICKED UP BY HER DAUGHTER ANGELITA IN SATISFIED CONDITION WITH DISCHARGE INSTRUCTIONS AND ALL HER PERSONAL BELONGINGS INCLUDING HER MEDICATIONS FROM THE PHARMACY AND SHE WAS INSTRUCTED TO FOLLOW UP WITH HER PRIMARY DOCTOR AND HER ABALONE FISHERMAN WITHIN THE NEXT ONE WEEK AND TO TAKE HER ANTIBIOTICS ORDERED AND THEY EXPRESSED UNDERSTANDING.
[2022-06-26] MEDS ORDERED: CEFTRIAXONE 1 G in IV DEXTROSE 5% 50 ML IV SCH (15:00)
[2022-06-26] MEDS ORDERED: AZITHROMYCIN IV 500 MG in IV DEXTROSE 5% 250 ML IV SCH (16:00)
[2022-06-26] MEDS ORDERED: LATANOPROST OPHT DROP 2.5 ML BOTTLE EACHEYE SCH (21:00)
== END 2022-06-26 14:30 | disposition home or self-care (01) | DRG 137 ==
LOC: ER 10:52 → TELE3 22:19
PROVIDERS: ADMIT Nurse Practitioner Acute Care; ATTEND Nurse Practitioner Acute Care
DX: J15.6 Pneumonia due to other Gram-negative bacteria (principal); I27.20 Pulmonary hypertension, unspecified; E86.0 Dehydration; R00.1 Bradycardia, unspecified; K29.70 Gastritis, unspecified, without bleeding; K57.90 Diverticulosis of intestine, part unspecified, without perforation or abscess without bleeding; N39.0 Urinary tract infection, site not specified; Z66 Do not resuscitate; M81.0 Age-related osteoporosis without current pathological fracture; Z96.649 Presence of unspecified artificial hip joint; Z90.49 Acquired absence of other specified parts of digestive tract; Z20.822 Contact with and (suspected) exposure to COVID-19; B96.89 Other specified bacterial agents as the cause of diseases classified elsewhere
CPT/HCPCS: 36415; 71045; 83735; 84100; 84443; 84484; 85025; 93005; A4663; C9113; G0378; J0456; J0696; J1650; J7050